=== PATIENT | female | born 1935 | race Caucasian/White ===

== ENCOUNTER 2017-03-26 18:13 | Observation (INO) | payer OTHER ==
[~2017-03-26] VITALS: Ht 157.5 cm; Wt 57.1 kg
[2017-03-26 19:38] LABS: HEMATOCRIT 40.4 % (36.0-46.0); MCH 30.1 PG (29.0-34.0); MCHC 32.2 G/DL (30.0-36.0); MCV 93.5 FL (83-99); MEAN PLAT.VOLUME 10.8 uM^3 (9.5-12.4); PLATELET COUNT 210 K/uL (156-360); RBC DIS.WIDTH-CV 13.9 % (11.8-14.6); RBC DIS.WIDTH-SD 47.9 % (39-53); RED BLOOD COUNT 4.32 M/uL (3.80-5.20); WHITE BLOOD COUNT 7.9 K/uL (4.1-10.2)
[2017-03-26 19:53] LABS: CHLORIDE 110 mEq/L (99-109); POTASSIUM 4.1 mEq/L (3.7-5.4); SODIUM 141 mEq/L (136-147)
[2017-03-26 19:54] LABS: GLUCOSE 89 mg/dL (70-99)
[2017-03-26 19:56] LABS: ANION GAP 8 MEQ/L (2-14)
[2017-03-26 19:58] LABS: GFR ESTIMATE (CALCULATED) > 59 mL/min/
[2017-03-26 19:59] LABS: UREA NITROGEN (BUN) 19 mg/dL (9-23)
[2017-03-26 20:00] LABS: TROP-I INTERPRETATION NEGATIVE; TROPONIN-I 0.01 ng/mL (0.0-0.30)
[2017-03-26 20:24] LABS: ADD MIUA? YES; BILIRUBIN NEGATIVE; BLOOD NEGATIVE; COLOR YELLOW ((YELLOW)); GLUCOSE (STRIP) NEGATIVE; KETONES 20; LEUKOCYTES TRACE; NITRITE NEGATIVE; PROTEIN (STRIP) NEGATIVE; SPECIFIC GRAVITY 1.014 (1.000-1.030); UROBILINOGEN 0.2 MG/DL (0.2-1.0)
[2017-03-26 20:29] LABS: UCUL ADDED? NO
[2017-03-26 20:38] LABS: BACTERIA RARE /HPF; EPITHELIAL CELLS RARE /HPF; GRANULAR CASTS 0-5 /LPF; HYALINE CASTS 0-5 /LPF; MUCUS 2+ /LPF; RED BLOOD CELLS 0-5 /HPF (0-5)
[2017-03-26] MEDS ORDERED: VALSARTAN40 MG PO (23:00)
[2017-03-26] MEDS ORDERED: METOPROLOL SUCC50 MG PO (23:01)
[2017-03-26] MEDS ORDERED: NASONEX17 GM BOTH NARES (23:03)
[2017-03-26] MEDS ORDERED: SYNTHROID112 MCG PO (23:04)
[2017-03-26] MEDS ORDERED: LO-DOSE ASPIRIN81 M2 PO (23:05)
[2017-03-26] MEDS ORDERED: NITROSTAT0.4 MG SL (23:06)
[2017-03-26] MEDS ORDERED: DITROPAN5 MG PO (23:09)
[2017-03-26 23:49] VITALS: BP 149/63
[2017-03-27 01:05] LABS: HDL CHOLESTEROL 45 MG/DL (Desirable>=50); LDL CHOLESTEROL 120 mg/dL (Desirable<100); NON-HDL CHOLESTEROL 137 mg/dL (Desirable<160); TOTAL CHOLESTEROL 182 mg/dL (Desirable<200); TRIGLYCERIDES 84 MG/DL (Normal: <150)
[2017-03-27 04:12] VITALS: BP 147/67
[2017-03-27 05:48] LABS: HEMATOCRIT 35.7 % (36.0-46.0); MCH 31.2 PG (29.0-34.0); MCHC 32.8 G/DL (30.0-36.0); MCV 95.2 FL (83-99); MEAN PLAT.VOLUME 11.4 uM^3 (9.5-12.4); PLATELET COUNT 216 K/uL (156-360); RBC DIS.WIDTH-CV 14.2 % (11.8-14.6); RBC DIS.WIDTH-SD 49.4 % (39-53); RED BLOOD COUNT 3.75 M/uL (3.80-5.20); WHITE BLOOD COUNT 6.4 K/uL (4.1-10.2)
[2017-03-27 07:34] LABS: Estimated Average Glucose 120 mg/dL (70-123); HEMOGLOBIN A1c (GLYCOHEMOGLOB) 5.8 % HGB (Below 5.7)
[2017-03-27 07:53] VITALS: BP 146/70
[2017-03-27 11:30] VITALS: BP 132/58
[2017-03-27] MEDS ORDERED: LEVAQUIN250 MG PO (15:43)
[2017-03-27] MEDS ORDERED: ATORVASTATIN CA10 MG PO ×2 (15:49→16:00)
[2017-03-27 16:31] VITALS: BP 148/70
== END 2017-03-27 17:15 | disposition home or self-care (01) ==
LOC: EME 18:13 → 5WEST 21:58 → EDOF 21:58 → ENRESERV 22:00 → 5WEST 23:32
PROVIDERS: Emergency Medicine; Hospitalist
DX: G45.9 Transient cerebral ischemic attack, unspecified (principal); N39.0 Urinary tract infection, site not specified; I25.10 Atherosclerotic heart disease of native coronary artery without angina pectoris; Z95.5 Presence of coronary angioplasty implant and graft; E78.00 Pure hypercholesterolemia, unspecified; E03.9 Hypothyroidism, unspecified; I73.9 Peripheral vascular disease, unspecified; Z88.8 Allergy status to other drugs, medicaments and biological substances; Z82.3 Family history of stroke; Z82.49 Family history of ischemic heart disease and other diseases of the circulatory system
CPT/HCPCS: 70450; 71020; 80048; 80061; 81003; 83036; 84484; 85027; 87086; 87168; 87169; 93005; 93880; 99281; 99285; G0378; G8987 GO CI; G8988 GO CH; G8989 GO CI; J1644; J1956; J7030

== ENCOUNTER 2017-04-09 15:24 | Emergency (ER) | payer OTHER ==
[~2017-04-09] VITALS: Ht 154.9 cm; Wt 54.4 kg
[~2017-04-09 15:24] MED LIST: ATORVASTATIN CA10 MG PO; DITROPAN5 MG PO; LEVAQUIN250 MG PO; LO-DOSE ASPIRIN81 M2 PO; METOPROLOL SUCC50 MG PO; NASONEX17 GM BOTH NARES; NITROSTAT0.4 MG SL; SYNTHROID112 MCG PO; VALSARTAN40 MG PO
[2017-04-09 16:57] LABS: ADD MIUA? NO; BILIRUBIN NEGATIVE; BLOOD NEGATIVE; COLOR YELLOW ((YELLOW)); GLUCOSE (STRIP) NEGATIVE; KETONES 20; LEUKOCYTES NEGATIVE; NITRITE NEGATIVE; PROTEIN (STRIP) NEGATIVE; SPECIFIC GRAVITY 1.024 (1.000-1.030); UCUL ADDED? NO; UROBILINOGEN 0.2 MG/DL (0.2-1.0)
[2017-04-09 18:02] LABS: C DIFF TOXIN POSITIVE (NEGATIVE)
[2017-04-09 18:05] LABS: PROBE CHECK PASS; SPECIMEN PROCESSING CONTROL PASS
[2017-04-09] MEDS ORDERED: FLAGYL500 MG PO (18:11)
[2017-04-09 18:39] VITALS: BP 134/85
== END 2017-04-09 18:39 | disposition home or self-care (01) ==
LOC: EME 15:24
PROVIDERS: Emergency Medicine
DX: A04.72 Enterocolitis due to Clostridium difficile, not specified as recurrent (principal); R39.11 Hesitancy of micturition; I10 Essential (primary) hypertension; Z79.82 Long term (current) use of aspirin
CPT/HCPCS: 74022; 80048; 81003; 85025; 87493; 99281; 99285